=== PATIENT | female | born 1955 | race Caucasian/White ===

== ENCOUNTER 2022-08-26 18:06 | Emergency (ER) | payer MEDICARE, SELFPAY ==
[2022-08-26 18:21] VITALS: BP 201/125; PULSE 113; RESP 17; TEMP 36.7; O2SAT 95; BMI 38.0
--- NOTE | 2022-08-26 18:34 | CTR_ITS ---
PROCEDURE INFORMATION: Exam: CT Head Without Contrast Exam date and time: 08/26/2022 7:17 PM Age: 67 years old Clinical indication: Weakness, extremity; Left; Additional info: Left arm parasthesia, weakness intermittent TECHNIQUE: Imaging protocol: Computed tomography of the head without contrast. Radiation optimization: All CT scans at this facility use at least one of these dose optimization techniques: automated exposure control; mA and/or kV adjustment per patient size (includes targeted exams where dose is matched to clinical indication); or iterative reconstruction. REPORTING DATA: Count of CT and Cardiac NM exams in prior 12 months: This patient has received 0 known CTs and 0 known cardiac nuclear medicine studies in the 12 months prior to the current study. COMPARISON: No relevant prior studies available. RADIATION DOSE METRICS: Total DLP (mGy-cm): 1112 FINDINGS: Brain: No hemorrhage. No edema. Mild diffuse cerebral atrophy and sequela of chronic small vessel ischemic disease. No mass effect. Cerebral ventricles: No ventriculomegaly. Paranasal sinuses: Visualized sinuses are unremarkable. No fluid levels. Mastoid air cells: Visualized mastoid air cells are well aerated. Bones/joints: Unremarkable. No acute fracture. Soft tissues: Unremarkable. CT/CT head wo con* [id number] IMPRESSION: No acute intracranial abnormality.
--- NOTE | 2022-08-26 18:34 | XRR_ITS ---
PROCEDURE INFORMATION: Exam: XR Chest Exam date and time: 08/26/2022 6:39 PM Age: 67 years old Clinical indication: Other: Weakness; Additional info: Tachycardia, HTN TECHNIQUE: Imaging protocol: Radiologic exam of the chest. Views: 1 view. COMPARISON: No relevant prior studies available. FINDINGS: Lungs: Unremarkable. No consolidation. Pleural spaces: Unremarkable. No pleural effusion. No pneumothorax. Heart/Mediastinum: Unremarkable. No cardiomegaly. Bones/joints: Unremarkable. XR/XR chest 1V portable [id number] IMPRESSION: No acute findings.
--- NOTE | 2022-08-26 19:06 | ECG_ITS ---
[facility] Test Date: 2022-08-26 Pat Name: Edda Kimbrough Department: Room: Gender: Female [employer]: : 1955 Requested By: Moisés Martinez Order Number: [id number] Edna MD: Robby Sánchez M.D. Measurements Intervals [place] Rate: 111 P: 44 OR: 148 QRS: 20 QRSD: 79 T: 59 QT: 313 QTc: 427 Interpretive Statements SINUS TACHYCARDIA POSSIBLE LEFT ATRIAL ENLARGEMENT [-0.1mV P-WAVE IN V1/V2] ANTEROSEPTAL MYOCARDIAL INFARCTION , OF INDETERMINATE AGE [40+ ms Q WAVE IN V1-V4] No previous ECG available for comparison Electronically Signed On 08-27-2022 0:22:55 CDT by Robby Sánchez M.D. [email or web address]
[2022-08-26 19:13] LABS: Basophils # 0.1 10^3/uL (0.0-0.1); Basophils % 0.6 %; Eosinophils # 0.3 10^3/uL (0.0-0.8); Eosinophils % 2.2 %; Hematocrit 47.2 % (37.0-47.0); Hemoglobin 15.4 g/dL (11.5-15.3); Lymphocytes # 3.6 10^3/uL (0.8-4.8); Lymphocytes % 32.1 %; Mean Corpuscular HGB Conc 32.6 g/dL (30.0-36.0); Mean Corpuscular Hemoglobin 28.7 pg (28.0-34.0); Mean Corpuscular Volume 87.9 fl (81-99); Mean Platelet Volume 10.5 fL (7.4-10.4); Monocytes % 8.9 %; Neutrophils # 6.27 10^3/uL (1.8-7.7); Neutrophils % 55.9 %; Nucleated Red Blood Cells % 0 %; Platelet Count 206 10^3/cmm (130-400); Red Blood Count 5.37 10^6/uL (4.1-5.3); Red Cell Distribution Width 12.4 % (12.1-15.1); White Blood Count 11.2 10^3/uL (4.0-10.0)
[2022-08-26 19:14] VITALS: BP 165/118; PULSE 117; RESP 16; O2SAT 97
--- NOTE | 2022-08-26 19:16 | ED_ITS ---
HPI - Neuro Symptoms/Deficit General: Chief Complaint: Neuro Symptoms/Deficit Stated Complaint: left side weakness Time Seen by Provider: 08/26/22 18:14 History of Present Illness: Patient presents to the ER with complaint of sudden onset weakness in her left side with tingling down the left leg. This started around 1700 today symptoms have all resolved. Onset (ago): hour(s) (1 hour ago) Last Observed Normal: 17:00 Location: left arm and left leg History of same: No Severity: moderate Quality: weak and tingling Relieving factors: time Exacerbating factors: none Context: sudden onset On Anticoagulants: No Associated symptoms: Reports weakness; Deny chest pain, nausea or vomiting Treatments Prior to Arrival: none Review of Systems General: Reports: 10 or more systems reviewed and unremarkable except in HPI and below Const: Denies: fever(s) or chills Eyes: Denies: change in vision or photophobia ENMT: Denies: throat pain or odynophagia Card: Denies: chest pain, palpitations or irregular heart rhythm Resp: Denies: dyspnea, productive cough or non-productive cough GI: Denies: abdominal pain, nausea, vomiting or diarrhea : Denies: flank pain, difficulty voiding or dysuria Musc: Denies: neck pain or back pain Skin/Breast: Denies: rash or pruritus Physical Exam Const: COMMON NORMALS: no acute distress, average body habitus, patient oriented x3, no limitations, healthy appearing, alert and well nourished HENMT: COMMON NORMALS: normocephalic, atraumatic, hearing grossly normal bilaterally, external ears normal, Normal external nose present and moist oral mucous membranes HEAD & SCALP: normocephalic and atraumatic NOSE: Normal external nose present EXTERNAL EAR: Yes external ears normal Eye: COMMON NORMALS: Equal, round and reactive pupils present, EOMs intact bilaterally, conjunctivae normal and no scleral icterus CONJUNCTIVA: Yes conjunctivae normal PUPIL: Yes Equal, round and reactive pupils present Neck/C-Spine: COMMON NORMALS: full ROM, no lymphadenopathy, supple, no meningeal signs, no JVD and Thyroid normal THYROID: Thyroid normal Lymph: LYMPHATIC: no lymphadenopathy noted Chest: COMMONS NORMALS: normal inspection of the chest and normal palpation of entire chest wall Cardio: COMMON NORMALS: no JVD, regular rate, regular rhythm, S1 normal heart sound present and S2 normal heart sound present RATE: regular rate RHYTHM: regular rhythm HEART SOUNDS: S1 normal heart sound present and S2 normal heart sound present GI: COMMON NORMALS: Normal to inspection, nondistended, normoactive bowel sounds present, Soft to palpation, non-tender, No hepatosplenomegaly present and no masses PALPATION: Yes Soft to palpation and Yes No hepatosplenomegaly present : COMMON NORMALS: Yes no CVA tenderness BLADDER/KIDNEY EXAM: Yes no CVA tenderness Back/Pelvis: COMMON NORMALS: no CVA tenderness Extremity: GENERAL: Yes normal exam except as noted Neuro: COMMON NORMALS: patient oriented x3, CN's II-XII intact bilaterally, moves all extremities, no focal motor deficits and no sensory deficits noted SENSORIUM/ORIENTATION: Yes alert MENINGEAL SIGNS: Yes no meningeal signs Course Vital Signs: Vital signs: Vital Signs Temperature 98.0 F 08/26/22 18:21 Pulse Rate 101 H 08/26/22 21:46 Respiratory Rate 21 H 08/26/22 21:46 Blood Pressure 153/110 08/26/22 21:46 Pulse Oximetry 98 08/26/22 21:46 Oxygen Delivery Me thod Nasal Cannula 08/26/22 19:14 MDM - Neuro Symptoms/Deficit Medical Decision Making Patient presents to the ER with complaints of left-sided weakness and tingling that was sudden onset and resolved shortly thereafter. Patient says she does not go to the doctor and is therefore not on any medicines has been a known diabetic in the past. Physical exam was benign lab work showed white count of 11.2 hemoglobin hematocrit of 15 and 47.2 blood glucose of 162, chest x-ray and head CT showed no acute findings. UA did show positive nitrates leukocyte Estrace and ketones. Patient will be discharged on oral antibiotics and instructed to follow-up with a primary care physician for further work-up and treatment. Differential Diagnosis Likely transient cerebral ischemia; Unlikely carpal tunnel syndrome, convulsions, delirium, subarachnoid hemorrhage, peripheral neuropathy, cerebrovascular accident or multiple sclerosis Medical Records I reviewed the patient's medical records. Lab Data I reviewed the patient's lab results. 08/26/22 19:00 08/26/22 19:00 Radiology Impressions Chest X-Ray 08/26/22 18:34 IMPRESSION: No acute findings. Head CT 08/26/22 18:34 IMPRESSION: No acute intracranial abnormality. Laboratory Results WBC 11.2 10^3/uL (4.0-10.0) H 08/26/22 19:00 RBC 5.37 10^6/uL (4.1-5.3) H 08/26/22 19:00 Hgb 15.4 g/dL (11.5-15.3) H 08/26/22 19:00 Hct 47.2 % (37.0-47.0) H 08/26/22 19:00 MCV 87.9 fl (81-99) 08/26/22 19:00 MCH 28.7 pg (28.0-34.0) 08/26/22 19:00 MCHC 32.6 g/dL (30.0-36.0) 08/26/22 19:00 RDW 12.4 % (12.1-15.1) 08/26/22 19:00 Plt Count 206 10^3/cmm (130-400) 08/26/22 19:00 MPV 10.5 fL (7.4-10.4) H 08/26/22 19:00 Neut % (Auto) 55.9 % 08/26/22 19:00 Lymph % (Auto) 32.1 % 08/26/22 19:00 Colbert % (Auto) 8.9 % 08/26/22 19:00 Eos % (Auto) 2.2 % 08/26/22 19:00 Baso % (Auto) 0.6 % 08/26/22 19:00 Neut # (Auto) 6.27 10^3/uL (1.8-7.7) 08/26/22 19:00 Lymph # (Auto) 3.6 10^3/uL (0.8-4.8) 08/26/22 19:00 Colbert # (Auto) 1.0 10^3/uL (0.2-0.9) H 08/26/22 19:00 Eos # (Auto) 0.3 10^3/uL (0.0-0.8) 08/26/22 19:00 Baso # (Auto) 0.1 10^3/uL (0.0-0.1) 08/26/22 19:00 Nucleated RBC % (auto) 0 % 08/26/22 19:00 Nucleated RBCs # 0.0 /100WBC 08/26/22 19:00 PT 13.80 SECONDS (12.1-14.9) 08/26/22 19:00 INR 1.03 (0.8-1.2) 08/26/22 19:00 Sodium 138 mmol/L (136-145) 08/26/22 19:00 Potassium 3.7 mmol/L (3.5-5.1) 08/26/22 19:00 Chloride 97 mmol/L (98-107) L 08/26/22 19:00 Carbon Dioxide 27 mmol/L (22-29) 08/26/22 19:00 Anion Gap 17.7 (5-19) 08/26/22 19:00 BUN 26 mg/dL (8-23) H 08/26/22 19:00 Creatinine 0.8 mg/dL (0.5-0.9) 08/26/22 19:00 GFR Calculation 71.3 mL/min (90-130) L 08/26/22 19:00 Glucose 162 mg/dL (65-115) H 08/26/22 19:00 Calculated Osmolality 294 mOsm/kg (285-295) 08/26/22 19:00 Calcium 9.9 mg/dL (8.5-10.5) 08/26/22 19:00 Magnesium 1.9 mg/dL (1.7-2.3) 08/26/22 19:00 Total Bilirubin 0.4 mg/dL (0.15-1.2) 08/26/22 19:00 AST 18 U/L (0-32) 08/26/22 19:00 ALT 15 U/L (0-33) 08/26/22 19:00 Alkaline Phosphatase 93 U/L (35-105) 08/26/22 19:00 C-Reactive Protein 4.9 mg/L (0.0-4.9) 08/26/22 19:00 Total Protein 7.4 g/dL (6.6-8.7) 08/26/22 19:00 Albumin 4.6 g/dL (3.5-5.2) 08/26/22 19:00 Globulin 2.8 g/dL (1.3-4.6) 08/26/22 19:00 Urine Color Yellow (Yellow) 08/26/22 21:28 Urine Appearance Sl hazy (CLEAR) A 08/26/22 21:28 Urine pH 5 (5-7) 08/26/22 21:28 Ur Specific [place] 1.015 (1.005-1.030) 08/26/22 21:28 Urine Protein 1+ (Negative) H 08/26/22 21:28 Urine Glucose (UA) Norm (Normal) 08/26/22 21:28 Urine Ketones 1+ (Negative) H 08/26/22 21:28 Urine Blood 2+ (Negative) H 08/26/22 21:28 Urine Nitrate Positive (Negative) H 08/26/22 21: Urine Bilirubin Neg (Negative) 08/26/22 21: Urine Urobilinogen Neg mg/dL (Negative) 08/26/22 21: Ur Leukocyte Esterase Trace (Negative) H 08/26/22 21:28 Urine RBC 5-10 /hpf (0-2) H 08/26/22 21:28 Urine WBC 10-15 /hpf (0-5) H 08/26/22 21: Ur Squamous Epith Cells 0-4 /hpf (0-5) H 08/26/22 21: Amorphous Sediment Not Reportable 08/26/22 21: Urine Bacteria 3+ /hpf (NONE) H 08/26/22 21:28 EKG Data EKG 1: I personally reviewed and interpreted this EKG as follows: EKG interpretation date: 08/26/22 EKG interpretation time: 19:06 Prior EKG tracings: not available for review Interpretation: EKG showed sinus tachycardia ventricular rate 111 bpm, NC interval 148, QRS duration 79, QTc of 379, possible left atrial enlargement, anteroseptal myocardial infarction of indeterminate age Q waves in V1 through V4. Discharge Plan Discharge Patient Disposition: Home Clinical Impression: Urinary tract infection, Intermittent paresthesia of left hand and foot Condition: Stable Prescriptions: New sulfamethoxazole-trimethoprim [Bactrim DS] 800-160 mg tablet 1 tab PO BID Qty: 14 0RF Discharge Orders: Discharge ED (Routine); Ordered 08/26/22 Ordered By: Moisés Martinez Referrals: Sunita Love MD [Primary Care Provider] - 1 week Patient Instructions: Urinary Tract Infection in Women (DC) Coding Level of Care Code ED Obstetrics And Gynecology Professor for Chg Leonid
[2022-08-26 19:43] LABS: INR 1.03 (0.8-1.2)
[2022-08-26 19:45] LABS: Alanine Aminotransferase 15 U/L (0-33); Albumin Level 4.6 g/dL (3.5-5.2); Alkaline Phosphatase 93 U/L (35-105); Anion Gap 17.7 (5-19); Aspartate Amino Transferase 18 U/L (0-32); Blood Urea Nitrogen 26 mg/dL (8-23); C Reactive Protein 4.9 mg/L (0.0-4.9); Calcium 9.9 mg/dL (8.5-10.5); Carbon Dioxide 27 mmol/L (22-29); Chloride 97 mmol/L (98-107); Globulin 2.8 g/dL (1.3-4.6); Glomerular Filtration Rate 71.3 mL/min (90-130); Glucose 162 mg/dL (65-115); Magnesium 1.9 mg/dL (1.7-2.3); Osmolality Calculated 294 mOsm/kg (285-295); Potassium 3.7 mmol/L (3.5-5.1); Sodium 138 mmol/L (136-145); Total Bilirubin 0.4 mg/dL (0.15-1.2); Total Protein 7.4 g/dL (6.6-8.7)
[2022-08-26 19:58] VITALS: BP 143/89
[2022-08-26] MEDS: sodium chloride 0.9% 1,000 ML 999 ML IV (19:58)
[2022-08-26 21:46] VITALS: BP 153/110; PULSE 101; RESP 21; O2SAT 98
[2022-08-26 21:46] LABS: Specific Gravity, Urine 1.015 (1.005-1.030); Urine Appearance SL Hazy (CLEAR); Urine Color Yellow (Yellow); pH Urine 5 (5-7)
[2022-08-26 21:47] LABS: Add Urine Culture? Yes; Add Urine Microscopic? YES; Bacteria Urine 3+ /hpf; Bilirubin Urine Neg (Negative); Blood Urine 2+ (Negative); Glucose Urine UA Norm (Normal); Ketones Urine 1+ (Negative); Leukocyte Esterase Urine Trace (Negative); Nitrate Urine Positive (Negative); Protein Urine 1+ (Negative); Squamous Epithelial Cell Urine 0-4 /hpf (0-5); Urobilinogen Urine Neg (Negative)
[2022-08-26 22:53] VITALS: BP 174/87; PULSE 98; RESP 20; O2SAT 100
== END 2022-08-26 22:55 | disposition home or self-care (01) ==
PROVIDERS: Emergency Provider Emergency Medicine; PCP Family Medicine
DX: N39.0 Urinary tract infection, site not specified (principal); R20.2 Paresthesia of skin
CPT/HCPCS: 70450; 71045; 80053; 81001; 83735; 85025; 85610; 86140; 87077; 87086; 87186; 93005; 96360; 99285; J7030